=== PATIENT | female | born 1990 | race Caucasian/White ===

== ENCOUNTER 2021-01-30 18:30 | Emergency (ER) | payer OTHER ==
[~2021-01-30] VITALS: Ht 167.6 cm; Wt 90.7 kg
[~2021-01-30 18:30] MED LIST: AMOX/K CLAV875 M1 PO; BIRTH CONTROL; CHERATUSSIN OR
[2021-01-30 19:33] VITALS: BP 163/80
[2021-01-30 20:34] LABS: HEMATOCRIT 40.6 % (37.0-47.0); IMMATURE GRANULOCYTES 0.2 % (0.0-5.0); NEUT# 10.93 thou/uL (2.00-7.15); RED BLOOD COUNT 4.81 mill/uL (4.20-5.60); RED CELL DISTRI WIDTH 13.1 % (11.5-15.5)
[2021-01-30 20:36] LABS: MEAN CELL VOLUME 84.4 fL CALC (80.0-100.0)
[2021-01-30] MEDS ORDERED: AMOXICILLIN500 MG PO (21:06)
== END 2021-01-30 21:40 | disposition home or self-care (01) | DRG 153 ==
LOC: ED 18:30
PROVIDERS: Family Medicine
DX: J02.9 Acute pharyngitis, unspecified (principal); Z20.822 Contact with and (suspected) exposure to COVID-19

== ENCOUNTER 2021-07-17 07:52 | Emergency (ER) | payer OTHER ==
[~2021-07-17] VITALS: Ht 167.6 cm; Wt 90.0 kg
[~2021-07-17 07:52] MED LIST changes: +AMOXICILLIN500 MG PO
[2021-07-17 08:55] LABS: HEMATOCRIT 42.6 % (37.0-47.0); HEMOGLOBIN 13.5 g/dl (12.0-16.0); IMMATURE GRANULOCYTES 0.3 % (0.0-5.0); MEAN CELL VOLUME 84.7 fL CALC (80.0-100.0); MEAN CORPUSCULAR HGB 26.8 pG CALC (26.0-32.0); MEAN CORPUSCULAR HGB CONC 31.7 g/dL CAL (32.0-36.0); NEUT# 1.4 thou/uL (2.00-7.15); RED BLOOD COUNT 5.03 mill/uL (4.20-5.60); RED CELL DISTRI WIDTH 13.3 % (11.5-15.5)
[2021-07-17 09:13] LABS: ALBUMIN 4.1 g/dL (3.2-5.0); ALKALINE PHOSPHATASE 67 u/l (38-126); ANION GAP 12 (6-22 (CALC)); BILIRUBIN, TOTAL 0.4 mg/dL (0.0-1.4); BUN 8 mg/dL (7-17); BUN/CREATININE RATIO 11 (12-20 (CALC)); CARBON DIOXIDE 25 mmol/l (22-30); CHLORIDE 106 mmol/l (95-108); CREATININE 0.7 mg/dL (0.5-1.0); GFR > 60 ML/MIN (>=60 (CALC)); GFR FOR AFR.AMER. > 60 ML/MIN (>=60 (CALC)); POTASSIUM 3.8 mmol/l (3.5-5.1); SGOT/AST 27 u/l (14-36); SODIUM 139 mmol/l (137-146); TOTAL PROTEIN 7.9 g/dL (6.3-8.2)
[2021-07-17] MEDS ORDERED: ZPAK PO (10:26)
[2021-07-17] MEDS ORDERED: MEDDOSEPAK PO (10:27)
[2021-07-17 11:03] VITALS: BP 109/79
== END 2021-07-17 11:14 | disposition home or self-care (01) | DRG 179 ==
LOC: ED 07:52
PROVIDERS: Emergency Medicine
DX: U07.1 COVID-19 (principal)

== ENCOUNTER 2023-07-09 00:58 | Emergency (ER) | payer OTHER ==
[~2023-07-09] VITALS: Ht 167.6 cm; Wt 100.0 kg
[~2023-07-09 00:58] MED LIST changes: +BEYAZ PO; +COZAAR25 MG PO; +MEDDOSEPAK PO; +PERCOCET 5/321 COMBO PO; +ZPAK PO
[2023-07-09 01:43] LABS: BASO% 0.1 % (0-3); EOS% 2.8 % (0-8); HEMATOCRIT 42.7 % (37.0-47.0); HEMOGLOBIN 13.8 g/dl (12.0-16.0); IMMATURE GRANULOCYTES 0.7 % (0.0-5.0); LYMPH% 29.6 % (15-41); MEAN CELL VOLUME 82.4 fL CALC (80.0-100.0); MEAN CORPUSCULAR HGB 26.6 pG CALC (26.0-32.0); MEAN CORPUSCULAR HGB CONC 32.3 g/dL CAL (32.0-36.0); MONO% 6.7 % (2-13); NEUT# 8.66 thou/uL (2.00-7.15); NEUT% 60.1 % (42-76); RED BLOOD COUNT 5.18 mill/uL (4.20-5.60); RED CELL DISTRI WIDTH 12.9 % (11.5-15.5); URINE BILIRUBIN - DIPSTICK Negative (NEGATIVE); URINE BLOOD DIPSTICK Negative (NEGATIVE); URINE GLUCOSE - DIPSTICK Negative (NEGATIVE); URINE KETONE Negative (NEGATIVE); URINE LEUK ESTERASE Negative (NEGATIVE); URINE NITRITE - DIPSTICK Negative (Negative); URINE PROTEIN - DIPSTICK Negative (NEG-TRACE); URINE SPECIFIC GRAVITY 1.025; URINE UROBILINOGEN - DIPSTICK 0.2 E.U./dL (0.2)
[2023-07-09 01:55] LABS: ALBUMIN 4.3 g/dL (3.2-5.0); ALKALINE PHOSPHATASE 85 u/l (38-126); ANION GAP 14 (6-22 (CALC)); BUN 13 mg/dL (7-17); BUN/CREATININE RATIO 19 (12-20 (CALC)); CARBON DIOXIDE 25 mmol/l (22-30); CHLORIDE 105 mmol/l (95-108); CREATININE 0.7 mg/dL (0.5-1.0); GFR FOR AFR.AMER. > 60 ML/MIN (>=60 (CALC)); GFR OTHER RACES > 60 ML/MIN (>=60 (CALC)); POTASSIUM 3.7 mmol/l (3.5-5.1); SODIUM 141 mmol/l (137-146); TOTAL PROTEIN 7.6 g/dL (6.3-8.2)
[2023-07-09 01:58] LABS: BILIRUBIN, TOTAL 0.7 mg/dL (0.02-1.3); SGOT/AST 72 u/l (14-36)
[2023-07-09 02:00] LABS: URINE COLOR Yellow
[2023-07-09] MEDS ORDERED: TORADOL PO (02:49)
[2023-07-09 02:52] VITALS: BP 113/87
== END 2023-07-09 03:02 | disposition home or self-care (01) | DRG 313 ==
LOC: ED 00:58
PROVIDERS: Family Medicine
DX: R07.89 Other chest pain (principal)